=== PATIENT | female | born 1965 | race Caucasian/White ===

== ENCOUNTER → 2016-05-31 | Outpatient (CLI) | payer BC ==
[2006-01-23 10:40] VITALS: TEMP 98.1
== END ==
LOC: MC.RAD 15:51
DX: Z12.31 Encounter for screening mammogram for malignant neoplasm of breast (principal)

== ENCOUNTER → 2018-11-24 | Outpatient (CLI) | payer BC ==
[2006-01-23 10:40] VITALS: TEMP 98.1
== END ==
LOC: MC.RAD 09:20
DX: Z12.31 Encounter for screening mammogram for malignant neoplasm of breast (principal)

== ENCOUNTER → 2021-07-05 | Outpatient (CLI) | payer BC ==
[2006-01-23 10:40] VITALS: TEMP 98.1
== END ==
LOC: COL.RAD 07:31
DX: R10.11 Right upper quadrant pain (principal)

== ENCOUNTER → 2021-07-13 | Outpatient (CLI) | payer BC ==
[2006-01-23 10:40] VITALS: TEMP 98.1
== END ==
LOC: COL.RAD 06:44
DX: R10.11 Right upper quadrant pain (principal)
CPT/HCPCS: A9537